=== PATIENT | female | born 2005 | race Caucasian/White ===

== ENCOUNTER 2024-06-08 12:54 | Outpatient (OUT) | payer OTHER, SELFPAY ==
--- NOTE | 2024-06-08 13:03 | XR_ITS ---
The [address] [address] Patient Name: JUSTIN OLVERA MRN: [id number] date: 2005 Sex: F Assigned Patient Location: [facility] Current Patient Location: [facility] Accession/Order Number: [id number] Exam Date: 06/08/2024 13:08 Report Date: 06/08/2024 14:46 At the request of: J CARLOS GUTIERREZ Procedure: XR knee LT 4V EXAM: XR knee LT 4V HISTORY: Knee pain; indication states medial knee pain after overextending knee, coming down stairs 3 days ago; technologist notes state unable to straighten leg and unable to weight-bear. COMPARISON: None. TECHNIQUE: AP, 2 oblique and lateral views of the left knee performed. FINDINGS: On the externally rotated image, there is a small thin ossific density within the soft tissues medial to the medial femoral condyle. Correlate with clinical findings to exclude a small avulsion fracture at the femoral attachment of the MCL. There is no other fracture. The joint spaces are maintained. There is no joint effusion at the knee. XR/XR knee LT 4V IMPRESSION: On the externally rotated image, there is a small thin ossific density within the soft tissues medial to the medial femoral condyle. Correlate with clinical findings to exclude a small avulsion fracture at the femoral attachment of the MCL. The left knee series is otherwise unremarkable. Electronically authenticated by: INDIO LOPES Date: 06/08/2024 14:46
== END 2024-06-08 12:55 | disposition home or self-care (01) ==
LOC: RAD 12:55
PROVIDERS: PCP Nurse Practitioner Primary Care; Visit Provider Nurse Practitioner Primary Care
DX: M25.562 Pain in left knee (principal)
CPT/HCPCS: 73564

== ENCOUNTER 2024-06-09 12:02 | Emergency (ER) | payer OTHER, SELFPAY ==
[2024-06-09 12:05] VITALS: BP 127/76; PULSE 87; TEMP 36.6; O2SAT 98; BMI 21.3
--- OUTSIDE RECORDS SUMMARY | 2024-06-09 12:12 | XMS_ITS | CCD ---
Author Organization [facility] Team Providers Care Handicapped Teacher Name Role Phone No scrap picker, Md Primary Care Provider Raegan vailable NO PRIMARY CARE, Primary Care Unavailable ABIMBOLA LARA Attending Unavailable OTHER, EMERGENCY Referring Unavailable CHAPIN GALVAN Attending Unavailable NO PRIMARY CAREMD Primary Care Unavailable SILAS MOREL Referring Unavailable CHAPIN GALVAN Attending Unavailable CHAPIN GALVAN Referring Unavailable NO PRIMARY CAREMD Primary Care Unavailable NO PRIMARY CAREMD Primary Care Unavailable TERENCE GALVAN Attending Unavailable TERENCE GALVAN Attending Unavailable ADAM MILLER Primary Care Unavailable NO PRIMARY CAREMD Primary Care Unavailable MOOKIE RICO Attending Unavailable ZAC PEREZ Admitting Unavailable ZAC PEREZ Attending Unavailable MAGALI PRIMARY MD ERIK Primary Care Unavailable APRIL KELLEY Attending Unavailable ADAM MILLER Primary Care Unavailable EMERGENCY, [facility] Referring Unavailable Medications Current Medications Medication Drug Class(es) Dates Sig (Normalized) Sig (Original) desmopressin acetate 0.2 mg oral tablet (2 sources) Vasopressin Analog, Factor VIII Activator take 2 tablets by mouth at bedtime desmopressin (DDAVP) 0.2 MG tablet Take 0.4 mg by mouth At bedtime 0 Active polyethylene glycol 3350 66673 mg powder for oral solution (2 sources) Osmotic Laxative Start: 10-21-2022 End: 01-19-2023 take 17 g by mouth once daily polyethylene glycol (MIRALAX;GLYCOLAX) 17 GM/SCOOP powder Take 17 g by mouth daily for 90 days 510 g 2 10/21/2022 01/19/2023 Active End: 10-21-2022 take 17 g by mouth once daily polyethylene glycol (MIRALAX;GLYCOLAX) 17 GM/SCOOP powder Take 17 g by mouth daily 0 10/21/2022 Discontinued (Reorder) sennosides, assisted 8.6 mg oral tablet (1 source) Start: 10-21-2022 End: 01-19-2023 take 1 tablet by mouth once daily at bedtime senna (SENOKOT) 8.6 MG tablet Take 1 Tablet (8.6 mg) by mouth nightly at bedtime for 90 days 30 Tablet 2 10/21/2022 01/19/2023 Active Completed/Discontinued Medications Medication Drug Class(es) Dates Sig (Normalized) Sig (Original) acetaminophen 325 mg oral tablet (1 source) Start: 10-21-2022 End: 10-21-2022 acetaminophen (TYLENOL) 325 MG tablet 650 mg bisacodyl 5 mg delayed release oral tablet (1 source) Stimulant Laxative Start: 08-02-2022 End: 08-02-2022 bisacodyl (DULCOLAX) EC tablet 10 mg clindamycin 0.01 mg/mg topical gel (1 source) Lincosamide Antibacterial End: 10-19-2022 clindamycin (CLINDAGEL) 1 % gel clindamycin 1 % topical gel 0 10/19/2022 Discontinued (* Remove (Not on AVS)) fluconazole 150 mg oral tablet (1 source) Azole Antifungal End: 10-19-2022 fluconazole (DIFLUCAN) 150 MG tablet fluconazole 150 mg tablet 0 10/19/2022 Discontinued (* Remove (Not on AVS)) 1000 ml glucose 50 mg/ml / potassium chloride 0.02 meq/ml / sodium chloride 9 mg/ml injection (1 source) Start: 10-19-2022 End: 10-21-2022 Dextrose 5 % NaCl 0.9% KCl 20 mEq/L IV melatonin 3 mg oral tablet (1 source) Start: 10-19-2022 End: 10-21-2022 melatonin tablet 9 mg midazolam 1 mg/ml injectable solution (1 source) Benzodiazepine Start: 08-02-2022 End: 08-02-2022 midazolam (VERSED) IV 1 mg ondansetron 4 mg disintegrating oral tablet (1 source) Serotonin-3 Receptor Antagonist Start: 10-19-2022 End: 10-21-2022 ondansetron (ZOFRAN-ODT) disintegrating tablet 4 mg Oxymetazoline / Tetracaine (2 sources) [place] Local Anesthetic Start: 10-19-2022 End: 10-19-2022 Oxymetazoline 0.025% Tetracaine 0.25% 1:1 nasal spray 1 [place] Start: 10-19-2022 End: 10-19-2022 Oxymetazoline 0.025% Tetraca ine 0.25% 1:1 nasal spray 1 [place] phenol 14 mg/ml mouthwash (1 source) Start: 10-19-2022 End: 10-21-2022 phenol (CHLORASEPTIC) 1.4 % oral spray 1 [place] polyethylene glycol 3350 [id number] mg / potassium chloride 2970 mg / sodium bicarbonate 6740 mg / sodium chloride 5860 mg / sodium sulfate 87404 mg powder for oral solution (1 source) Osmotic Laxative Start: 10-19-2022 End: 10-21-2022 polyethylene glycol (COLYTE) oral solution 5 ml sodium chloride 9 mg/ml injection (5 sources) Start: 10-19-2022 End: 10-21-2022 NaCl 0.9 % 10 mL Start: 10-19-2022 End: 10-21-2022 NaCl 0.9 % IV Flush bag 30 m L Start: 10-19-2022 End: 10-21-2022 NaCl 0.9% PosiFlush 2 mL sodium phosphate, dibasic 35 .5 mg/ml / sodium phosphate, monobasic 96.4 mg/ml enema (3 sources) Start: 10-19-2022 End: 10-20-2022 phosphate (FLEET) 7-19 GM/11 8ML enema 118 mL Start: 08-02-2022 End: 08-02-2022 phosphate (FLEET) 7-19 GM/11 8ML enema 118 mL surgical lubricant (SURGILUB E) jelly (2 sources) Start: 10-19-2022 End: 10-19-2022 surgical lubricant (SURGILUB E) jelly Start: 10-19-2022 End: 10-19-2022 surgical lubricant (SURGILUB E) jelly water 1000 mg/ml injectable solution (1 source) Start: 10-19-2022 End: 10-21-2022 sterile water injection 10 m L Problems Active Problems Problem Classification Problem Date Documented Da te Episodic/Chronic Anxiety disorders (1 source) Anxiety; Translations: [Anxiety disorder, unspecified] Onset: 11-19-2021 10-19-2022 Chronic Attention-deficit, conduct, and disruptive behavior disorders (3 sources) Disruptive behavior disorder; Translations: [Conduct disorder, unspecified] Onset: 06-08-2019 06-08-2019 Chronic Attention-deficit, conduct, and disruptive behavior disorders (1 source) Problem behavior; Translations: [Other symptoms and signs involving appearance and behavior] Episodic Attention-deficit, conduct, and disruptive behavior disorders (1 source) Aggressive behavior; Translations: [Other symptoms and signs involving appearance and behavior] Episodic Intestinal obstruction without hernia (3 sources) Fecal impaction; Translations: [Fecal impaction] Onset: 10-19-2022 Resolved: 10-21-2022 10-21-2022 Episodic Mood disorders (4 sources) Depressive disorder; Translations: [Depressive disorder] Onset: 08-24-2019 04-26-2020 Chronic Other gastrointestinal disorders (3 sources) Chronic constipation; Translations: [Other constipation] Onset: 10-19-2022 10-21-2022 Episodic Past or Other Problems Problem Classification Problem Date Documented Da te Episodic/Chronic Biliary tract disease (1 source) Polyp of gallbladder; Translations: [Cholesterolosis of gallbladder] Onset: 11-19-2021 10-19-2022 Episodic Fluid and electrolyte disorders (3 sources) Hypokalemia; Translations: [Hypokalemia] Onset: 11-22-2018 Resolved: 11-24-2018 11-24-2018 Episodic Other gastrointestinal disorders (5 sources) Constipation; Translations: [Constipation, unspecified] Onset: 08-02-2022 Resolved: 09-19-2022 Episodic Other nutritional; endocrine; and metabolic disorders (3 sources) Weight loss; Translations: [Abnormal weight loss] Onset: 11-22-2018 Resolved: 11-24-2018 11-24-2018 Episodic Poisoning by nonmedicinal substances (3 sources) Ingestion of foreign material; Translations: [Toxic effect of unspecified substance, accidental (unintentional), initial encounter] Onset: 04-25-2020 04-25-2020 Episodic Residual codes; unclassified (1 source) Body mass index 20-24 - normal; Translations: [Body mass index (BMI) of 20 to 24] Onset: 11-19-2021 10-19-2022 Episodic Suicide and intentional self-inflicted injury (3 sources) Suicide attempt ; Translations: [Poisoning by unspecified drugs, medicaments and biological substances, intentional self-harm, initial encounter] Onset: 04-25-2020 04-25-2020 Episodic Results Test Name Value Interpretation Reference Range Facility ABDOMEN 1 VIEWon 10-21-2022 ABDOMEN 1 VIEW ABDOMEN 1 VIEW CLINICAL HISTORY: clean out post film TECHNIQUE: Supine frontal view of the abdomen was performed. IMAGES OBTAINED: 2 COMPARISON: none FINDINGS: BOWEL GAS PATTERN: Normal nonobstructive bowel gas pattern. STOOL: No significant colonic stool burden CALCIFICATIONS: No abnormal calcifications. LUNG BASES: Visualized lung bases are aerated. BONES: No bony abnormalities noted. IMPRESSION: No abnormalities are identified. This report has been created using voice recognition software Signed by: Dr. CHARIS CASANOVA at 10/21/2022 17:16 Normal [facility] Basic Metabolic Panelon CO2 [Moles/Vol] 19.4 mmol/L Low 22.0-29.0 [facility] Comment on above: Order Comment: Relea se to patient->Automatic [id number]&Blood Performed By: #### E GFR #### [place] [address] Creatinine [Mass/Vol] 0.60 mg/dL Normal 0.50-1.00 [facility] Comment on above: Order Comment: Relea se to patient->Automatic [id number]&Blood Performed By: #### E GFR #### [place] [address] Glucose [Mass/Vol] 95 mg/dL Normal 70-99 [facility] Comment on above: Order Comment: Relea se to patient->Automatic [id number]&Blood Result Comment: Gregory swain for Diagnosis of Diabetes: Fasting Specimen (no caloric intake for at least 8 hours): <100 mg/dL Normal 100-125 mg/dL Increased risk for Diabetes >125 mg/dL Diagnostic for Diabetes Random Glucose (any time of day without regard to last meal): > or = 200 mg/dL plus Classic Symptoms of Diabetes Performed By: #### E GFR #### [address] [address] Urea nitrogen [Mass/Vol] 4 mg/dL Normal 4-19 [facility] Comment on above: Order Comment: Relea se to patient->Automatic [id number]&Blood Performed By: #### E GFR #### [address] [address] Chloride [Moles/Vol] 104 mmol/L Normal 96-108 [facility] [place] Comment on above: Order Comment: Relea se to patient->Automatic [id number]&Blood Performed By: #### E GFR #### [address] [address] Potassium [Moles/Vol] 4.6 mmol/L Normal 3.3-5.1 [facility] Comment on above: Order Comment: Relea se to patient->Automatic [id number]&Blood Performed By: #### E GFR #### [address] [address] Sodium [Moles/Vol] 136 mmol/L Normal 133-145 [facility] Comment on above: Order Comment: Relea se to patient->Automatic [id number]&Blood Performed By: #### E GFR #### [address] [address] Calcium [Mass/Vol] 9.2 mg/dL Normal 7.6-11.0 [facility] Comment on above: Order Comment: Relea se to patient->Automatic [id number]&Blood Performed By: #### E GFR #### [address] [address] Chloride [Moles/Vol] 104 mmol/L 96 - 10 8 mmol/L [facility] CO2 [Moles/Vol] 19.4 mmol/L Low 22.0 - 29.0 mmol/L [facility] Creatinine [Mass/Vol] 0.60 mg/dL 0.50 - 1.00 mg/dL [facility] Glucose [Mass/Vol] 95 mg/dL 70 - 99 mg/dL [facility] Comment on above: Criteria for Diagnos is of Diabetes: Fasting Specimen (no caloric intake for at least 8 hours): <100 mg/dL Normal 100-125 mg/dL Increased risk for Diabetes >125 mg/dL Diagnostic for Diabetes Random Glucose (any time of day without regard to last meal): > or = 200 mg/dL plus Classic Symptoms of Diabetes Interpretation and review of laboratory results Abnormal [facility] Potassium [Moles/Vol] 4.6 mmol/L 3.3 - 5.1 mmol/L [facility] Sodium [Moles/Vol] 136 mmol/L 133 - 145 mmol/L [facility] Urea nitrogen [Mass/Vol] 4 mg/dL 4 - 19 mg/dL [facility] No Panel Informationon 10-21 Release to patient->Automatic [facility] XR Abdomen Viewson 3 IMPRESSION: No abnormalities are identified. This report has been created using voice recognition software [facility] ABDOMEN 1 VIEW CLINICAL HISTORY: clean out post film TECHNIQUE: Supine frontal view of the abdomen was performed. IMAGES OBTAINED: 2 COMPARISON: none FINDINGS: BOWEL GAS PATTERN: Normal nonobstructive bowel gas pattern. STOOL: No significant colonic stool burden CALCIFICATIONS: No abnormal calcifications. LUNG BASES: Visualized lung bases are aerated. BONES: No bony abnormalities noted. [facility] Charis Casanova MD - 10/21/2022 ABDOMEN 1 VIEW CLINICAL HISTORY: clean out post film TECHNIQUE: Supine frontal view of the abdomen was performed. IMAGES OBTAINED: 2 COMPARISON: none FINDINGS: BOWEL GAS PATTERN: Normal nonobstructive bowel gas pattern. STOOL: No significant colonic stool burden CALCIFICATIONS: No abnormal calcifications. LUNG BASES: Visualized lung bases are aerated. BONES: No bony abnormalities noted. IMPRESSION: No abnormalities are identified. This report has been created using voice recognition software [facility] Radiology Study observation (narrative) [facility] XR Abdomen ViewsOrdered By: Charis Casanova on 10-21-2022 [facility] Work Phone: eGFRon 10-21-2022 eGFR see below Normal [facility] Comment on above: Order Comment: Relea se to patient->Automatic [id number]&Blood Result Comment: Refe rence range: > 3 months: >90 ml/min/1.73m^2 Ref. Range change effective 11/07/2017 Unable to calculate EGFR; height not available. - To manually calculate eGFR use Bedside Mckinley equation. - (0.41 X height in centimeters)/serum creatinine mg/dL Performed By: #### E GFR #### [address] [address] eGFR see below [facility] Comment on above: Reference range: > 3 months: >90 ml/min/1.73m^2 Ref. Range change effective 11/07/2017 Unable to calculate EGFR; height not available. - To manually calculate eGFR use Bedside Mckinley equation. - (0.41 X height in centimeters)/serum creatinine mg/dL Basic Metabolic Panelon Calcium [Mass/Vol] 9.0 mg/dL Normal 7.6-11.0 [facility] Comment on above: Order Comment: Relea se to patient->Automatic [id number]&Blood Performed By: #### E GFR #### [address] [address] CO2 [Moles/Vol] 19.7 mmol/L Low 22.0-29.0 [facility] Comment on above: Order Comment: Relea se to patient->Automatic [id number]&Blood Performed By: #### E GFR #### [address] [address] Creatinine [Mass/Vol] 0.61 mg/dL Normal 0.50-1.00 [facility] Comment on above: Order Comment: Relea se to patient->Automatic [id number]&Blood Performed By: #### E GFR #### [address] [address] Glucose [Mass/Vol] 98 mg/dL Normal 70-99 [facility] Comment on above: Order Comment: Relea se to patient->Automatic [id number]&Blood Result Comment: Gregory swain for Diagnosis of Diabetes: Fasting Specimen (no caloric intake for at least 8 hours): <100 mg/dL Normal 100-125 mg/dL Increased risk for Diabetes >125 mg/dL Diagnostic for Diabetes Random Glucose (any time of day without regard to last meal): > or = 200 mg/dL plus Classic Symptoms of Diabetes Performed By: #### E GFR #### [address] [address] Urea nitrogen [Mass/Vol] 5 mg/dL Normal 4-19 [facility] Comment on above: Order Comment: Relea se to patient->Automatic [id number]&Blood Performed By: #### E GFR #### [address] [address] Chloride [Moles/Vol] 106 mmol/L Normal 96-108 [facility] [place] Comment on above: Order Comment: Relea se to patient->Automatic [id number]&Blood Performed By: #### E GFR #### [address] [address] Potassium [Moles/Vol] 4.9 mmol/L Normal 3.3-5.1 [facility] Comment on above: Order Comment: Relea se to patient->Automatic [id number]&Blood Result Comment: Hemo lysis detected. Results may be falsely elevated. Interpret results with caution. Performed By: #### E GFR #### [address] [address] Sodium [Moles/Vol] 138 mmol/L Normal 133-145 [facility] Comment on above: Order Comment: Relea se to patient->Automatic [id number]&Blood Performed By: #### E GFR #### [address] [address] Calcium [Mass/Vol] 9.0 mg/dL 7.6 - 11. 0 mg/dL [facility] Chloride [Moles/Vol] 106 mmol/L 96 - 10 8 mmol/L [facility] CO2 [Moles/Vol] 19.7 mmol/L Low 22.0 - 29.0 mmol/L [facility] Creatinine [Mass/Vol] 0.61 mg/dL 0.50 - 1.00 mg/dL [facility] Glucose [Mass/Vol] 98 mg/dL 70 - 99 mg/dL [facility] Comment on above: Criteria for Diagnos is of Diabetes: Fasting Specimen (no caloric intake for at least 8 hours): <100 mg/dL Normal 100-125 mg/dL Increased risk for Diabetes >125 mg/dL Diagnostic for Diabetes Random Glucose (any time of day without regard to last meal): > or = 200 mg/dL plus Classic Symptoms of Diabetes Interpretation and review of laboratory results Abnormal [facility] Potassium [Moles/Vol] 4.9 mmol/L 3.3 - 5.1 mmol/L [facility] Comment on above: Hemolysis detected. Results may be falsely elevated. Interpret results with caution. Sodium [Moles/Vol] 138 mmol/L 133 - 145 mmol/L [facility] Urea nitrogen [Mass/Vol] 5 mg/dL 4 - 19 mg/dL [facility] No Panel Informationon 10-20 Release to patient->Automatic [facility] eGFRon 10-20-2022 eGFR see below Normal [facility] Comment on above: Order Comment: Relea se to patient->Automatic [id number]&Blood Result Comment: Refe rence range: > 3 months: >90 ml/min/1.73m^2 Ref. Range change effective 11/07/2017 Unable to calculate EGFR; height not available. - To manually calculate eGFR use Bedside Mckinley equation. - (0.41 X height in centimeters)/serum creatinine mg/dL Performed By: #### E GFR #### [place] [address] eGFR see below [facility] Comment on above: Reference range: > 3 months: >90 ml/min/1.73m^2 Ref. Range change effective 11/07/2017 Unable to calculate EGFR; height not available. - To manually calculate eGFR use Bedside Mckinley equation. - (0.41 X height in centimeters)/serum creatinine mg/dL Basic Metabolic Panelon Calcium [Mass/Vol] 10.2 mg/dL Normal 7.6-11.0 [facility] Comment on above: Order Comment: Relea se to patient->Automatic [id number]&Blood Performed By: #### E GFR #### [place] [address] CO2 [Moles/Vol] 25.4 mmol/L Normal 22.0-29.0 [facility] Comment on above: Order Comment: Relea se to patient->Automatic [id number]&Blood Performed By: #### E GFR #### [place] [address] Creatinine [Mass/Vol] 0.71 mg/dL Normal 0.50-1.00 [facility] Comment on above: Order Comment: Relea se to patient->Automatic [id number]&Blood Performed By: #### E GFR #### [place] [address] Glucose [Mass/Vol] 89 mg/dL Normal 70-99 [facility] Comment on above: Order Comment: Relea se to patient->Automatic [id number]&Blood Result Comment: Crit brynn for Diagnosis of Diabetes: Fasting Specimen (no caloric intake for at least 8 hours): <100 mg/dL Normal 100-125 mg/dL Increased risk for Diabetes >125 mg/dL Diagnostic for Diabetes Random Glucose (any time of day without regard to last meal): > or = 200 mg/dL plus Classic Symptoms of Diabetes Performed By: #### E GFR #### [place] [address] Urea nitrogen [Mass/Vol] 8 mg/dL Normal 4-19 [facility] Comment on above: Order Comment: Relea se to patient->Automatic 79845&Blood Performed By: #### E GFR #### [address] [address] Chloride [Moles/Vol] 100 mmol/L Normal 96-108 [facility] [place] Comment on above: Order Comment: Relea se to patient->Automatic [id number]&Blood Performed By: #### E GFR #### [address] [address] Potassium [Moles/Vol] 3.6 mmol/L Normal 3.3-5.1 [facility] Comment on above: Hemolysis detected. Results may be falsely elevated. Interpret results with caution. Order Comment: Relea se to patient->Automatic [id number]&Blood Result Comment: Hemo lysis detected. Results may be falsely elevated. Interpret results with caution. Performed By: #### E GFR #### [address] [address] Sodium [Moles/Vol] 139 mmol/L Normal 133-145 [facility] Comment on above: Order Comment: Relea se to patient->Automatic [id number]&Blood Performed By: #### E GFR #### [address] [address] Calcium [Mass/Vol] 10.2 mg/dL 7.6 - 11. 0 mg/dL [facility] CO2 [Moles/Vol] 25.4 mmol/L 22.0 - 29.0 mmol/L [facility] Creatinine [Mass/Vol] 0.71 mg/dL 0.50 - 1.00 mg/dL [facility] Glucose [Mass/Vol] 89 mg/dL 70 - 99 mg/dL [facility] Comment on above: Criteria for Diagnos is of Diabetes: Fasting Specimen (no caloric intake for at least 8 hours): <100 mg/dL Normal 100-125 mg/dL Increased risk for Diabetes >125 mg/dL Diagnostic for Diabetes Random Glucose (any time of day without regard to last meal): > or = 200 mg/dL plus Classic Symptoms of Diabetes Urea nitrogen [Mass/Vol] 8 mg/dL 4 - 19 mg/dL [facility] No Panel Informationon 10-19 Release to patient->Automatic [facility] eGFRon 10-19-2022 eGFR see below Normal [facility] Comment on above: Order Comment: Relea se to patient->Automatic [id number]&Blood Result Comment: Refe rence range: > 3 months: >90 ml/min/1.73m^2 Ref. Range change effective 11/07/2017 Unable to calculate EGFR; height not available. - To manually calculate eGFR use Bedside Mckinley equation. - (0.41 X height in centimeters)/serum creatinine mg/dL Performed By: #### E GFR #### [place] [address] eGFR see below [facility] Comment on above: Reference range: > 3 months: >90 ml/min/1.73m^2 Ref. Range change effective 11/07/2017 Unable to calculate EGFR; height not available. - To manually calculate eGFR use Bedside Mckinley equation. - (0.41 X height in centimeters)/serum creatinine mg/dL ABDOMEN 1 VIEWon 10-14-2022 ABDOMEN 1 VIEW CLINICAL HISTORY: 16 year old with chronic constipation; evaluate stool burden COMPARISON: 08/02/2022 PROCEDURE COMMENTS: Single view of the abdomen. FINDINGS: There is a large amount of stool in the rectum with the rectum distended up to 10 cm. A moderate to large amount of stools throughout the remaining colon most prominent in the ascending and transverse colon. There are no air-filled dilated loops of small bowel. No calcification is identified. The lung bases are clear.Mild rightward curvature of the lumbar spine in this position. IMPRESSION: Large stool burden with findings concerning for rectal impaction. This report has been created using voice recognition software Signed by: Dr. Ariadna Huang at 10/14/2022 11:34 Normal [facility] Progress Noteon 10-14-2022 [employer] Authentication Interface Message Text Justin Olvera is here for new office visit for: Constipation History of Present Illness HPI Justin is a 16 year old female with depression and history of suicide attempt who is being seen here today for constipation. Justin has struggled with constipation for my whole life . She was previously on miralax but she says that it caused a lot of pain so she stopped taking it about a month ago. She has a bowel movement 1-2 times per week. She says that the stools are soft and formed. But she is constipated about half of the time. She will have periods of constipation where she will have a lot of straining and has to use every muscle in my body . She says that she will sometimes see blood in her stools when they are harder and larger but she tries not to look because she gets scared when she sees the blood. Per grandma, she gets impacted frequently and has done one home clean out in the past. She isn't sure what she took at that time but it didn't help. She has abdominal pain frequently - almost daily. The pain is constant but there are days when the pain isn't as severe. She also gets nauseous frequently and she will have occasional vomiting. These symptoms have been going on for a long period of time. Variable appetite - hasn't eaten yet today. She was seen in the ED in Jul 2022. She had a very large stool burden and received an enema. She passed liquid stool and was discharged with miralax and bisacodyl. Past Medical History Past Medical History: Diagnosis Date ADHD (attention deficit hyperactivity disorder) Anxiety Bed wetting Depression Neuroleptic overdose 08/22/2019 Suicide attempt by other psychotropic drug overdose 08/23/2019 Past Surgical History Past Surgical History: Procedure Laterality Date TONSILLECTOMY TYMPANOSTOMY TUBE PLACEMENT placed spring Allergies No Known Allergies Medications Outpatient Encounter Medications as of 10/14/2022 Medication Sig Dispense Refill desmopressin (DDAVP) 0.2 MG tablet Take 0.4 mg by mouth At bedtime (Patient not taking: Reported on 06/02/2022) No facility-administered encounter medications on file as of 10/14/2022. Family Medical History Family History Problem Relation Age of Onset Substance Use Mother Suicide Attempts Mother Anxiety Disorder Mother ADHD Mother Suicide Attempts Father Bipolar Disorder Father Anxiety Disorder Father Substance Use Father Bipolar Disorder Sister Suicide Attempts Sister Depression Maternal Uncle Eating Disorder Paternal Aunt Depression Paternal Aunt Depression Maternal Grandmother Mental Illness Paternal Grandfather Social History Social History Socioeconomic History Marital status: Single Spouse name: None Number of children: None Years of education: None Highest education level: None Tobacco Use Smoking status: Every Day Packs/day: 0.00 Types: Vaping, Cigarettes Smokeless tobacco: Current Vaping Use Vaping status: Former Substances: Nicotine Substance and Sexual Activity Alcohol use: Yes Comment: more than 1 [id number] access was drinking daily 2-3pint of Fireball close to almost 1 year Drug use: Yes Types: Marijuana, LSD, Benzodiazepines, Methylphenidate Comment: regular use of marijuana-4 days ago. 1/2 blunt a day, quit for drug test 1 week ago . Zanax Diet Social History Water source for child? [place] Review of Systems Review of Systems Constitutional: Negative. HENT: Negative. Eyes: Negative. Respiratory: Negative. Cardiovascular: Negative. Endocrine: negative Gastrointestinal: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 [degF] Mookie Rico DO Work Phone: [facility] 08-02-2022 20:33-0500 Respiratory rate 18 /min Crystal Trisha DO Work Phone: [facility] 08-02-2022 13:29-0500 Body weight 51 kg Crystal Trisha DO Work Phone: [facility] 08-02-2022 13:29-0500 Diastolic blood pressure 80 mm[Hg] Crystal Trisha DO Work Phone: [facility] 08-02-2022 13:29-0500 Heart rate 110 /min Crystal Trisha DO Work Phone: [facility] 08-02-2022 13:29-0500 SaO2% (BldA) [Mass fraction] 99 % Crystal Trisha DO Work Phone: [facility] 08-02-2022 13:29-0500 Systolic blood pressure 125 mm[Hg] Crystal Trisha DO Work Phone: [facility] Encounters Encounter Date Encounter Type Care Provider Facility Start: 10-19-2022 End: 10-21-2022 Evaluation and management of inpatient ZAC THOMPSONRER [facility] Start: 10-19-2022 End: 10-21-2022 Evaluation and management of inpatient Zac Perez DO Work Phone: [facility] Comment on above: Fecal impaction (Amanda wick Dx); Chronic constipation Start: 10-14-2022 End: 10-15-2022 ambulatory CHAPIN GALVAN [facility] Start: 10-14-2022 End: 10-14-2022 ambulatory [facility] Esteban GALVAN [facility] Start: 08-04-2022 ambulatory [facility] Start: 08-04-2022 End: 08-04-2022 Emergency department patient visit MD [facility] Start: 08-04-2022 End: 08-04-2022 Emergency department patient visit Terence Galvan MD Work Phone: [facility] Comment on above: Aggressive behavior (Primary Dx); Behavior concern Start: 08-02-2022 End: 08-02-2022 Emergency department patient visit MD [facility] Start: 08-02-2022 End: 08-02-2022 Emergency department patient visit Mookie Rico DO Work Phone: [facility] Comment on above: Constipation (Primar y Dx) Start: 06-02-2022 End: 06-02-2022 Emergency department patient visit APRIL KELLEY [facility] Start: 06-02-2022 End: 06-02-2022 Emergency department patient visit TERENCE GALVAN [facility] Procedures Date Procedure Procedure Detail Performing Clinician Start: 10-21-2022 Radiologic exam abdomen 1 view Sasha Kehinde ASSET4columba DO Work Phone (unformatted): [phone] Start: 10-21-2022 Basic metabolic pane l calcium total Sasha Plummer DO Work Phone (unformatted): [phone] Start: 10-21-2022 GFR/1.73 sq M.predicted among non-blacks MDRD (S/P/Bld) [Vol rate/Area] Sasha Busby Jamesoncolumab DO Work Phone (unformatted): [phone] Start: 10-20-2022 Basic metabolic pane l calcium total Rachel Stanford MD Work Phone (unformatted): [phone] Start: 10-20-2022 GFR/1.73 sq M.predicted among non-blacks MDRD (S/P/Bld) [Vol rate/Area] Rachel Stanford MD Work Phone (unformatted): [phone] Start: 10-19-2022 Basic metabolic pane l calcium total Sasha Busby [employer] DO Work Phone (unformatted): [phone] Start: 10-19-2022 GFR/1.73 sq M.predicted among non-blacks MDRD (S/P/Bld) [Vol rate/Area] Sasha Thompsonckeltremaine DO Work Phone (unformatted): [phone] Start: 08-02-2022 Basic metabolic 2000 panel - Serum or Plasma Mookie Rico DO Work Phone: Start: 08-02-2022 GFR/1.73 sq M.predicted among non-blacks MDRD (S/P/Bld) [Vol rate/Area] Mookie Rico DO Work Phone: Start: 08-02-2022 Radiologic exam abdomen 1 view Alan Owen MD Work Phone: Plan of Treatment Date Care Activity Detail Author Start: 02-24-2028 Tetanus Diphtheria and Pertussis Vaccines (6 - Td or Tdap) Tetanus Diphtheria and Pertussis Vaccines (6 - Td or Tdap) [facility] Start: 11-08-2022 End: 11-08-2022 Patient encounter procedure 11/08/2022 9:00 AM EDT Office Visit [facility] - [place] [address] [facility] [address] [place] [address] Chapin Galvan DO [address] [place] [address] Gastroenterology [facility] Start: 10-14-2022 End: 10-14-2022 Patient encounter procedure 10/14/2022 Office Visit Gastroenterology Chapin Galvan DO [address] [place] [address] Gastroenterology [facility] Start: 04-15-2022 FLU (#1) FLU (#1) [facility] Start: 2020 MenACWY (1 - 2-dose series) MenACWY (1 - 2-dose series) [facility] Start: 2020 MenB (1 of 2 - MenB 2-Dose Series Bexsero) MenB (1 of 2 - MenB 2-Dose Series Bexsero) [facility] Start: 12-25-2019 Hearing Screening Hearing Screening [facility] Start: 12-25-2019 Vision Screening Vision Screening [facility] Start: 08-26-2018 HPV (2 - 2-dose series) HPV (2 - 2-dose series) [facility] Start: 12-25-2015 HPV (1 - 2-dose series) HPV (1 - 2-dose series) [facility] Start: 12-25-2011 Tetanus Diphtheria and Pertussis Vaccines (1 - Tdap) Tetanus Diphtheria and Pertussis Vaccines (1 - Tdap) [facility] Start: 2005 Hepatitis A (1 of 2 - 2-dose series) Hepatitis A (1 of 2 - 2-dose series) [facility] Start: 2005 MMR (1 of 2 - Standard series) MMR (1 of 2 - Standard series) [facility] Start: 2005 Varicella (1 of 2 - 2-dose childhood series) Varicella (1 of 2 - 2-dose childhood series) [facility] Start: 06-26-2005 COVID-19 (#1) COVID-19 (#1) [facility] Start: 02-23-2005 Polio (1 of 3 - 4-dose series) Polio (1 of 3 - 4-dose series) [facility] Start: 2004 Hepatitis B (1 of 3 - 3-dose series) Hepatitis B (1 of 3 - 3-dose series) [facility] Immunizations Immunization Date Immunization Notes Care Provider Ayesha christianson 11-16-2021 meningococcal polysaccharide (groups A, C, Y and W-135) diphtheria toxoid conjugate vaccine (MCV4P) Zac Perez DO Work Phone: [facility] 02-23-2018 Human Papillomavirus 9-valent vaccine Zac Perez DO Work Phone: [facility] 02-23-2018 meningococcal polysaccharide (groups A, C, Y and W-135) diphtheria toxoid conjugate vaccine (MCV4P) Zac Perez DO Work Phone: [facility] 02-23-2018 tetanus toxoid, redu demetrio diphtheria toxoid, and acellular pertussis vaccine, adsorbed Zac Ana DO Work Phone: [facility] 03-23-2010 diphtheria, tetanus toxoids and acellular pertussis vaccine, unspecified formulation Zac Ana DO Work Phone: [facility] 03-23-2010 measles, mumps and rubella virus vaccine Zac Ana DO Work Phone: [facility] 03-23-2010 poliovirus vaccine, inactivated Zac Ana DO Work Phone: [facility] 03-23-2010 varicella virus vaccine Core y Ana DO Work Phone: [facility] 09-20-2006 diphtheria, tetanus toxoids and acellular pertussis vaccine, unspecified formulation Zac Ana DO Work Phone: [facility] 02-07-2006 haemophilus influenz ae type b vaccine, HbOC conjugate Zac Ana DO Work Phone: [facility] 02-07-2006 measles, mumps and rubella virus vaccine Zac Ana DO Work Phone: [facility] 02-07-2006 pneumococcal conjuga te vaccine, 7 valent Zac Ana DO Work Phone: [facility] 02-07-2006 poliovirus vaccine, inactivated Azc Ana DO Work Phone: [facility] 02-07-2006 TD(adult) unspecifie d formulation Zac Ana DO Work Phone: [facility] 02-07-2006 varicella virus vaccine Core y Ana DO Work Phone: [facility] 09-13-2005 diphtheria, tetanus toxoids and acellular pertussis vaccine, unspecified formulation Zac Ana DO Work Phone: [facility] 09-13-2005 haemophilus influenz ae type b conjugate and Hepatitis B vaccine Zac Ana DO Work Phone: [facility] 09-13-2005 pneumococcal conjuga te vaccine, 7 valent Zac Ana DO Work Phone: [facility] 09-13-2005 poliovirus vaccine, inactivated Zac Ana DO Work Phone: [facility] 04-14-2005 DTaP-hepatitis B and poliovirus vaccine Zac Ana DO Work Phone: [facility] 04-14-2005 haemophilus influenz ae type b vaccine, HbOC conjugate Zac Ana DO Work Phone: [facility] 04-14-2005 pneumococcal conjuga te vaccine, 7 valent Zac Ana DO Work Phone: [facility] 2004 diphtheria, tetanus toxoids and acellular pertussis vaccine, unspecified formulation Zac Ana DO Work Phone: [facility] 2004 hepatitis B vaccine, pediatric or pediatric/adolescent dosage Zac Ana DO Work Phone: [facility] Payers Date Payer Category Payer Unknown [id number] 1983 Unknown [id number] 2.. [id number] 1983 Unknown [id number] 2.. [id number] 1983 Unknown [id number] 2.16. [id number] 1983 Unknown [id number] 2.16. [id number] 1983 Unknown [id number] 2.16. [id number] 1983 Unknown [id number] 2.16. [id number] 1983 Unknown [id number] 2.16. [id number] 1983 Unknown [id number] 2.16. [id number] Unknown [id number] Unknown [id number] Social History Date Type Detail Facility Start: 04-25-2020 Tobacco smoking stat [facility] Ex-smoker [facility] History of tobacco use Current smoker [facility] History of tobacco use Cigarette Smoker A [facility] History of tobacco use [facility] Start: 04-25-2020 Tobacco use and exposure Smoke less tobacco non-user [facility] Start: 08-02-2022 End: 10-14-2022 Alcohol intake Current drinker of alcohol (finding) [facility] Start: 06-08-2019 History SDOH Alcohol Frequency 2 [facility] Start: 06-08-2019 History SDOH Alcohol Std Drinks 3 [facility] Start: 08-22-2019 Tobacco Comment sometimes smok ed a juul, over a year ago [facility] Start: 08-22-2019 Alcohol Comment social use wit h friends, over about 3 months ago [facility] Start: 2005 Sex Assigned At Not on file A [facility] Start: 08-04-2022 Tobacco smoking stat RUSTIS Smokes tobacco daily [facility] Work Phone: Start: 08-04-2022 Tobacco use and exposure User of smokeless tobacco [facility] Start: 08-04-2022 Alcohol Comment more than 1 [id number] access was drinking daily 2-3pint of Fireball close to almost 1 year [facility] Start: 07-25-2022 End: 08-04-2022 Exposure to SARS-CoV-2 (event) Not sure [facility] Start: 06-03-2022 End: 10-14-2022 History of Social function [facility] Work Phone: Start: 06-03-2022 End: 10-14-2022 Tobacco use panel [facility] Work Phone: Adolescent depressio n screening assessment 7 [facility] Work Phone: Clinical Notes 06-02-2022 to 10-21-2022 Ancillary Progress Note - Janice Morales - 10/21/2022 3:20 PM ESTAncillary Progress Note - Janice Morales - 10/21/2022 3:20 PM ESTPlan of Care - Lisa Tenoroi RN - 10/21/2022 9:32 AM ESTAttachments Note Date & Type Note Facility 10-21-2022 Note Discharge/Transfer S blessing Name: Justin Olvera MR#: [id number] : 2005 Room #: 6120/01 Age/Sex: 16 y.o. female Admit Date: 10/19/2022 Admitting: Zac Perez DO Discharge Date: 10/21/2022 Discharged from: [facility] Attending: Dr Perez Final Diagnosis: Fecal impaction Significant Findings (Problem List): Active Hospital Problems Diagnosis Chronic constipation Resolved Hospital Problems Diagnosis Date Resolved Fecal impaction 10/21/2022 Reason for Hospitalization: Fecal impaction Discharge Condition: Good Hospital Course (Care, treatment and services provided): Brief Narrative Hospital Course: Justin Olvera is a 16 y.o. female with hx of anxiety, depression, manic bipolar I disorder, and constipation presenting with fecal impaction. Justin was recently seen in GI clinic on 10/14/22 at that time she reported that she has bowel movements 1-2x/weekly which are soft. She states she has always struggled with constipation and will sometimes develop nausea and abdominal cramping after taking Miralax so will not take it. No regular home bowel regimen and unable to complete home clean out therapy. KUB on 10/14/22 revealed large stool burden with concern for rectal impaction with rectal distension 10 cm. Patient was ultimately directly admitted to GI service for NG Colyte clean out. During admission, NG was placed and Colyte ran at goal rate, as well as 2 enemas. Patient maintained on IVF for hydration. Patient had no significant electrolyte derangements. Stools were monitored until clear. Repeat KUB was obtained once cleared and showed no significant stool burdern. Patient was discharged to home with home bowel regimen Senna daily and Miralax 1 capful daily and will follow up with GI as an outpatient. Discharge Day Exam: Refer to daily progress note for physical exam Immunizations Administered for This Admission No immunizations on file. Significant Imaging Results: X-Ray Abdomen 1 View Final Result by Danis Rad Results In (10/21 1716) IMPRESSION: No abnormalities are identified. This report has been created using voice recognition software Pending Test Results and Tests to Obtain as Outpatient: In-Process Results No orders found from 09/22/2022 to 10/22/2022. Preliminary Results No orders found from 09/22/2022 to 10/22/2022. Disposition: She was discharged to home. Discharge Medications: She did have significant changes to their home medications (see below) Medication List START taking these medications Morning Afternoon Evening Bedtime As Needed senna 8.6 MG tablet Take 1 Tablet (8.6 mg) by mouth nightly at bedtime for 90 days Commonly known as: SENOKOT [ ] [ ] [ ] [ ] [ ] CONTINUE taking these medications which HAVE NOT changed at this visit Morning Afternoon Evening Bedtime As Needed polyethylene glycol 17 GM/SCOOP powder Take 17 g by mouth daily for 90 days Commonly known as: MIRALAX;GLYCOLAX [ ] [ ] [ ] [ ] [ ] Where to Get Your Medications These medications were sent to [facility] [address] [facility] [place], [place] - [address] [place] [address] polyethylene glycol 17 GM/SCOOP powder senna 8.6 MG tablet Discharge Instructions: Instructions/Follow Up Future Labs/Procedures Expected by Expires Disease Specific Instructions: As directed Comments: Constipation: Justin was diagnosed with constipation. Home regimen: 1 capful ( 17 g) Miralax daily - mix with 4 - 6 oz of liquid Senna 1 tablet (8.6 mg) by mouth daily Sometimes, medicine is prescribed to help with constipation. Polyethylene glycol (miralax) helps make stool softer. Laxatives helps the stool move through the bowel easier. Please see the medication list of what Justin was prescribed. Medicine will not make the constipation go away immediately - it may take days or weeks to see improvement. Typically, the goal is to have 1 soft stool every day. You can work with Justin's doctor on medication changes if needed. There are other ways to help manage constipation. Hydration - Increasing the amount of fluids she drinks can help keep her stools soft. Exercise - Regular exercise, including walking, is also encouraged. Physical activity can help stimulate her intestines. Diet/Fiber - Foods high in fiber can also help prevent and alleviate constipation. Foods high in fiber include fruit, vegetables, whole-grain breads, low-fat dairy products, beans, and lean meats. Behavioral modification - It is also helpful to set up a regular time each day for your child to have a bowel movement. Allow them to sit on the toilet for at least 10 minutes at the same time each day. This may help train your child's body to have regular bowel movements. Having a stool for her to put her legs up on while on the toilet can sometimes help as well. Justin should be evaluated by a healthcare professional if (more content not included)... [facility] 10-21-2022 Progress note Formatting of t his note is different from the original. NUTRITION MONITORING: Reviewed H&P, progress notes, nursing nutrition screen, problem list, growth, current nutrition support, nutritionally significant labs and medications. Justin Olvera is a 16 y.o. female Patient Active Problem List Diagnosis Disruptive behavior disorder Depressive disorder Suicide attempt by drug ingestion Ingestion of substance Chronic constipation Anxiety Body mass index (BMI) of 20 to 24 Manic bipolar I disorder Polyp of gallbladder Fecal impaction Past Medical History: Diagnosis Date ADHD (attention deficit hyperactivity disorder) Anxiety Bed wetting Depression Neuroleptic overdose 08/22/2019 Suicide attempt by other psychotropic drug overdose 08/23/2019 Current Diet:Patient is on a Clear Liquid diet PO Intake(%): No Known Allergies Body mass index is 22.95 kg/m . at the 69 %ile (Z= 0.49) based on CDC (Girls, 2-20 Years) BMI-for-age data using weight from 10/19/2022 and height from 10/14/2022. 65 %ile (Z= 0.38) based on CDC (Girls, 2-20 Years) [id number] data using vitals from 10/19/2022. Medications:Zofran Lab Results:Reviewed Recent Labs 10/21/22 0628 NA 136 K 4.6 CL 104 CO2 19.4* BUN 4 GLU 95 CALCIUM 9.2 CREATININE 0.60 Nutrition Concerns:Patient presents with constipation. Patient is here for a bowel clean out. Plan:Investigator Welfare/Pathologist to follow-up in three days. Monitor for diet advancement, nutritional intake, tolerance, clinical condition, and weight changes. JANICE MORALES October 21, 2022 [facility] 10-21-2022 Miscellaneous Notes NUTRITION MONITORING: Reviewed H&P, progress notes, nursing nutrition screen, problem list, growth, current nutrition support, nutritionally significant labs and medications. Justin Olvera is a 16 y.o. female Patient Active Problem List Diagnosis Disruptive behavior disorder Depressive disorder Suicide attempt by drug ingestion Ingestion of substance Chronic constipation Anxiety Body mass index (BMI) of 20 to 24 Manic bipolar I disorder Polyp of gallbladder Fecal impaction Past Medical History: Diagnosis Date ADHD (attention deficit hyperactivity disorder) Anxiety Bed wetting Depression Neuroleptic overdose 08/22/2019 Suicide attempt by other psychotropic drug overdose 08/23/2019 Current Diet:Patient is on a Clear Liquid diet PO Intake(%): No Known Allergies Body mass index is 22.95 kg/m . at the 69 %ile (Z= 0.49) based on CDC (Girls, 2-20 Years) BMI-for-age data using weight from 10/19/2022 and height from 10/14/2022. 65 %ile (Z= 0.38) based on CDC (Girls, 2-20 Years) [id number] data using vitals from 10/19/2022. Medications:Zofran Lab Results:Reviewed Recent Labs 10/21/22 0628 NA 136 K 4.6 CL 104 CO2 19.4* BUN 4 GLU 95 CALCIUM 9.2 CREATININE 0.60 Nutrition Concerns:Patient presents with constipation. Patient is here for a bowel clean out. Plan:Investigator Welfare/Pathologist to follow-up in three days. Monitor for diet advancement, nutritional intake, tolerance, clinical condition, and weight changes. JANICE MORALES October 21, 2022 Problem: Constipation, Risk of Goal: Bowel elimination without discomfort Outcome: Ongoing Problem: Fluid Volume Deficit Goal: Balanced intake and output Outcome: Ongoing Problem: Nausea/Vomiting Goal: Absence of nausea Outcome: Ongoing Problem: Pain - Acute Goal: Reduced pain sensation Outcome: Ongoing Problem: Transition Readiness Goal: Knowledge of discharge instructions Outcome: Ongoing Multidisciplinary Team Meeting Assessment/Plan of Care Reviewed Are there Case Management needs identified at this time? No DME/skilled needs at this time. CMs will continue to monitor closely for potential home care (services/equipment) needs. Pt on IV fluids and receiving Golytely via NG tube. Representatives: Case Management: Mallory Chan RN, Melchor Farris RN Nursing: Jass Rocha RN Clinical Coordinator Slat Twister: Da Diaz Multidisciplinary Team Meeting Assessment/Plan of Care Reviewed Are there Case Management needs identified at this time? No DME/skilled needs at this time. CMs will continue to monitor closely for potential home care (services/equipment) needs. Pt on IV fluids and receiving Golytely via NG tube. Representatives: Case Management: Mallory Chan RN, Melchor Farris booth operator Life: Anya Valoric CCLS Nursing: Teresa Hanley RN Clinical Coordinator Slat Twister: Da Montano Problem: Constipation, Risk of Goal: Bowel elimination without discomfort Outcome: Ongoing Problem: Fluid Volume Deficit Goal: Balanced intake and output Outcome: Ongoing Problem: Nausea/Vomiting Goal: Absence of nausea Outcome: Ongoing Problem: Constipation, Risk of Goal: Bowel elimination without discomfort Outcome: Ongoing Problem: Fluid Volume Deficit Goal: Balanced intake and output Outcome: Ongoing Problem: Nausea/Vomiting Goal: Absence of nausea Outcome: Ongoing Problem: Pain - Acute Goal: Reduced pain sensation Outcome: Ongoing Problem: Transition Readiness Goal: Knowledge of discharge instructions Outcome: Ongoing documented in this encounter [facility] 10-21-2022 Plan of care note Problem: Constipation, Risk of Goal: Bowel elimination without discomfort Outcome: Ongoing Problem: Fluid Volume Deficit Goal: Balanced intake and output Outcome: Ongoing Problem: Nausea/Vomiting Goal: Absence of nausea Outcome: Ongoing Problem: Pain - Acute Goal: Reduced pain sensation Outcome: Ongoing Problem: Transition Readiness Goal: Knowledge of discharge instructions Outcome: Ongoing [facility] 10-21-2022 Progress note Formatting of t his note might be different from the original. Multidisciplinary Team Meeting Assessment/Plan of Care Reviewed Are there Case Management needs identified at this time? No DME/skilled needs at this time. [facility] will continue to monitor closely for potential home care (services/equipment) needs. Pt on IV fluids and receiving Golytely via NG tube. Representatives: Case Management: Mallory Chan RN, Melchor Farris RN Nursing: Jass Rocha RN Clinical Coordinator Slat Twister: Da Diaz [facility] 10-21-2022 History of Presen t illness Narrative Resident Daily Progress Note Name: Justin Olvera Date:10/21/2022 Attending:Zac Perez DO Admission Date: 10/19/2022 Hospital Day: 3 SUBJECTIVE: Justin had no acute events overnight and had stable VS. She was having nausea so colytely clean out was decreased to 400 cc/hr and it improved. She continues to stool, most recent stool noted to be large, green-yellow, watery. She denied any abdominal cramping or nausea this morning. OBJECTIVE: Vitals: 10/21/22 0354 BP: 106/76 Pulse: 62 Resp: 16 Temp: 36.9 C (98.4 F) Temp: 36.9 C (98.4 F) Temp Min: 36.8 C (98.2 F) Max: 37.2 C (99 F) Heart Rate: 62 Pulse Min: 62 Max: 92 Resp: 16 Resp Min: 16 Max: 25 BP: 106/76 BP Min: 104/68 Max: 145/71 No data recorded Date 10/20/22 - 10/20/22235810/21/22 0000 - 10/21/222358 Shift 6546-6180 6926-5702 24 Hour Total 5088-9006 24 Hour Total INTAKE P.O. 500 298 798 Colyte Solution PO (mL) 500 500 Liquid (mL) 298 298 I.V.(mL/kg/hr) 1195.29(1.67) 658.92(0.92) 1854.21(1.29) Volume (mL) (Dextrose 5 % NaCl 0.9% KCl 20 mEq/L IV) 1195.29 658.92 1854.21 NG/GT 1500 5500 7000 3000 3000 Colyte Solution NG/GT (mL) 1500 5500 7000 3000 3000 Shift Total(mL/kg) 3195.29(53.52) 6456.92(108.16) 9652.21(161.68) 3000(50.25) 3000(50.25) OUTPUT Stool(mL/kg/hr) 3150(4.4) 1800(2.51) 4950(3.45) 600 600 Stool 3150 1800 4950 600 600 Shift Total(mL/kg) 3150(52.76) 1800(30.15) 4950(82.92) 600(10.05) 600(10.05) NET 45.29 4656.92 4702.21 2400 2400 Weight (kg) 59.7 59.7 59.7 59.7 59.7 59.7 Dietary Orders (From admission, onward) Start Ordered 10/19/22 09 DIET CLEAR LIQUID DIET EFFECTIVE NOW 10/19/22 09 Patient Lines/Drains/Airways Status Active IV Lines Name Placement date Placement time Site Days Peripheral IV 10/21/22 Left Antecubital 10/21/22 0105 -- less than 1 Patient Lines/Drains/Airways Status Active NG/Airways Name Placement date Placement time Site Days Nasal/Oral Tube 10 fr Right nostril 10/19/222115 Right nostril 1 General: Afebrile, In no acute distress, well appearing HEENT: moist mucus membranes, no nasal or ocular discharge, NG present in nares Cardiovascular: RRR, Normal S1 and S2, No murmurs, gallops, or rubs, pulses palpable, capillary refill< 3 seconds Respiratory: Good aeration B/L. No wheezes, rhonchi, or cough. No increased respiratory effort use of accessory muscles, supraclavicular, intercostal, or subcostal retractions. No stridor, grunting or head bobbing. Abdomen: Normal active bowel sounds present, soft, non-distended, non-tender, no guarding, stool palpable in abdomen. MSK: no deformities, no joint swelling Neuro: Alert, gross motor movements intact Skin: Warm and dry, No rashes Scheduled Meds: NaCl 0.9% 2 mL Intravenous Q8H melatonin 9 mg Oral at Bedtime Continuous Infusions: polyethylene glycol 500 mL/hr (10/20/22 214) Dextrose 5 % NaCl 0.9% KCl 20 mEq/L 100 mL/hr at 10/21/22 0312 PRN Meds: NaCl 0.9%, NaCl 0.9%, NaCl, sterile water, NaCl, ondansetron, phenol Data Review: Results for orders placed or performed during the hospital encounter of 10/19/22 (from the past 24 hour(s)) Basic Metabolic Panel Result Value Ref Range Sodium 136 133 - 145 mmol/L Potassium 4.6 3.3 - 5.1 mmol/L Chloride 104 96 - 108 mmol/L Carbon Dioxide 19.4 (L) 22.0 - 29.0 mmol/L BUN 4 4 - 19 mg/dL Glucose 95 70 - 99 mg/dL Creatinine 0.60 0.50 - 1.00 mg/dL Calcium 9.2 7.6 - 11.0 mg/dL eGFR Result Value Ref Range eGFR see below NA Assessment: Principal Problem: Fecal impaction Active Problems: Chronic constipation Justin is a 16 y.o. female with hx of anxiety, depression, manic bipolar I disorder, and constipation presenting with fecal impaction. She is currently in no acute distress and continued to have green yellow stools. She requires continued hospital admission for close monitoring, NG bowel clean out and monitoring for electrolyte derangements. Plan: Problem Based Plan: Principal Problem: Fecal impaction Active Problems: Chronic constipation - place NG - Colyte Start at 100 and increase by 50 to a goal rate of 500 cc/hr - S/p Fleet enema x2 - MIVF - CLD - Zofran 4mg q8h PRN for nausea - Melatonin 9 mg HS - Chloraseptic spray PRN - Strict I&O's - routine vitals - daily BMP - KUB once clears - Child life consult Sasha Plummer DO [facility] Pediatric Resident, PGY-2 10/21/22 9:31 AM I personally performed clarke portions of the history and physical examination of this patient, and discussed their management with the media relations intern/resident. I reviewed the media relations intern/resident's note, and agree with the documented findings and plan of care, except as noted by or italics. I have discussed the differential diagnosis, assessment, and plan of care with the media relations intern/resident and medical decision making was done together. Zac Perez DO [facility] Pediatric Gastroenterology Office [phone] Pager [phone] 10/21/2022 1:41 PM Resident Daily Progress Note Name: Justin Olvera Date:10/20/2022 Attending:Zac Perez DO Admission Date: 10/19/2022 Hospital Day: 2 SUBJECTIVE: Justin had no acute events overnight. She vomited out her NG and it was replaced. She is stooling, most recent stool noted to be large, brown, watery. She endorsed minimal abdominal cramping this morning. OBJECTIVE: Vitals: 10/20/22 0435 BP: 121/66 Pulse: 78 Resp: 20 Temp: 37.1 C (98.8 F) Temp: 37.1 C (98.8 F) Temp Min: 36.6 C (97.9 F) Max: 37.5 C (99.5 F) Heart Rate: 78 Pulse Min: 70 Max: 99 Resp: 20 Resp Min: 16 Max: 30 BP: 121/66 BP Min: 107/57 Max: 127/85 No data recorded Date 10/19/22 0000 - 10/19/22235810/20/22 0000 - 10/20/22 235 Shift 4396-1321 1449-8056 24 Hour Total 2992-0577 6593-6484 24 Hour Total INTAKE P.O. 260 260 Liquid (mL) 260 260 I.V. 758.35(1.06) 758.35(0.53) 665.8 665.8 Volume (mL) (Dextrose 5 % NaCl 0.9% KCl 20 mEq/L IV) 758.35 758.35 665.8 665.8 NG/GT 1000 1000 Colyte Solution NG/GT (mL) 1000 1000 Shift Total(mL/kg) 2017.35(33.81) 2018.35(33.81) 665.8(11.15) 665.8(11.15) OUTPUT Urine Urine Occurrence 1 x 1 x Emesis/NG/GT Emesis Occurrence 1 x 1 x Stool 2600 2600 Stool 2600 2600 Shift Total(mL/kg) 2600(43.55) 2600(43.55) NET 35 2017.35 -1934.2 -1934.2 Weight (kg) 59.7 59.7 59.7 59.7 59.7 Dietary Orders (From admission, onward) Start Ordered 10/19/22 0952 DIET CLEAR LIQUID DIET EFFECTIVE NOW 10/19/22 0955 Patient Lines/Drains/Airways Status Active IV Lines Name Placement date Placement time Site Days Peripheral IV 10/19/22 18 Right Antecubital 10/19/22 1452 -- less than 1 Patient Lines/Drains/Airways Status Active NG/Airways Name Placement date Placement time Site Days Nasal/Oral Tube 10 fr Right nostril 10/19/22 2116 Right nostril less than 1 General: Afebrile, In no acute distress, well appearing HEENT: moist mucus membranes, no nasal or ocular discharge, NG present in nares Neck: Soft, supple, no cervical adenopathy Cardiovascular: RRR, Normal S1 and S2, No murmurs, gallops, or rubs, pulses palpable, capillary refill< 3 seconds Respiratory: Good aeration B/L. No wheezes, rhonchi, or cough. No increased respiratory effort use of accessory muscles, supraclavicular, intercostal, or subcostal retractions. No stridor, grunting or head bobbing. Abdomen: Normal active bowel sounds present, soft, non-distended, non-tender, no guarding, stool palpable in abdomen. MSK: no deformities, no joint swelling Neuro: Alert, gross motor movements intact Skin: Warm and dry, No rashes Scheduled Meds: NaCl 0.9% 2 mL Intravenous Q8H melatonin 9 mg Oral at Bedtime Continuous Infusions: polyethylene glycol 500 mL/hr (10/19/22 2115) Dextrose 5 % NaCl 0.9% KCl 20 mEq/L 100 mL/hr at 10/20/22 0645 PRN Meds: NaCl 0.9%, NaCl 0.9%, NaCl, sterile water, NaCl, ondansetron, phenol Data Review: Results for orders placed or performed during the hospital encounter of 10/19/22 (from the past 24 hour(s)) Basic Metabolic Panel Result Value Ref Range Sodium 139 133 - 145 mmol/L Potassium 3.6 3.3 - 5.1 mmol/L Chloride 100 96 - 108 mmol/L Carbon Dioxide 25.4 22.0 - 29.0 mmol/L BUN 8 4 - 19 mg/dL Glucose 89 70 - 99 mg/dL Creatinine 0.71 0.50 - 1.00 mg/dL Calcium 10.2 7.6 - 11.0 mg/dL eGFR Result Value Ref Range eGFR see below NA Assessment: Principal Problem: Fecal impaction Active Problems: Chronic constipation Justin is a 16 y.o. female with hx of anxiety, depression, manic bipolar I disorder, and constipation presenting with fecal impaction. She is currently in no acute distress and continued to have dark brown stools. She requires continued hospital admission for close monitoring, NG bowel clean out and monitoring for electrolyte derangements. Plan: Problem Based Plan: Principal Problem: Fecal impaction Active Problems: Chronic constipation - place NG - Colyte Start at 100 and increase by 50 to a goal rate of 500 cc/hr - S/p Fleet enema x1, consider repeat enema today to faciliate clean out - MIVF - CLD - Zofran 4mg q8h PRN for nausea - Melatonin 9 mg HS - Chloraseptic spray PRN - Strict I&O's - routine vitals - daily BMP - KUB once clears - Child life consult Sasha Plummer DO [facility] Pediatric Resident, PGY-2 10/20/22 9:53 AM I personally performed clarke portions of the history and physical examination of this patient, and discussed their management with the media relations intern/resident. I reviewed the media relations intern/resident's note, and agree with the documented findings and plan of care, except as noted by or italics. I have discussed the differential diagnosis, assessment, and plan of care with the media relations intern/resident and medical decision making was done together. Zac Perez DO [facility] Pediatric Gastroenterology Office [phone] Pager [phone] 10/21/2022 7:34 AM documented in this encounter [facility] 10-20-2022 Progress note Formatting of t his note might be different from the original. Multidisciplinary Team Meeting Assessment/Plan of Care Reviewed Are there Case Management needs identified at this time? No DME/skilled needs at this time. [facility] will continue to monitor closely for potential home care (services/equipment) needs. Pt on IV fluids and receiving Golytely via NG tube. Representatives: Case Management: Mallory Chan RN, Melchor Farris booth operator Life: Anya Valoric CCLS Nursing: Teresa Hanley RN Clinical Coordinator Slat Twister: Da Montano [facility] 10-20-2022 Plan of care note Problem: Constipation, Risk of Goal: Bowel elimination without discomfort Outcome: Ongoing Problem: Fluid Volume Deficit Goal: Balanced intake and output Outcome: Ongoing Problem: Nausea/Vomiting Goal: Absence of nausea Outcome: Ongoing [facility] 10-19-2022 Plan of care note Problem: Constipation, Risk of Goal: Bowel elimination without discomfort Outcome: Ongoing Problem: Fluid Volume Deficit Goal: Balanced intake and output Outcome: Ongoing Problem: Nausea/Vomiting Goal: Absence of nausea Outcome: Ongoing Problem: Pain - Acute Goal: Reduced pain sensation Outcome: Ongoing Problem: Transition Readiness Goal: Knowledge of discharge instructions Outcome: Ongoing [facility] 10-19-2022 Note MEDICAL ADMISSION HI STORY AND PHYSICAL Date of Service: 10/19/2022 Attending Provider: Zac Perez DO Primary Care Provider: [facility], MD Rikki Chief Complaint: Fecal impaction and constipation Reason for Hospitalization: Failure of nonhospital therapy History of Present illness: Justin Olvera is a 16 y.o. female with hx of anxiety, depression, manic bipolar I disorder, and constipation presenting with fecal impaction. She was accompanied by her mother. History was obtained from mother and patient. Justin was recently seen in GI clinic on 10/14/22 at that time she reported that she has bowel movements 1-2x/weekly which are soft. However she states that she is frequently constipated where she has to strain and spend longer times in the bathroom. She reports when she is constipated those stools are hard and sometimes has blood. She also endorses intermittent abdominal pain and nausea. She states her last BM occurred 1 day prior. She denies any encopresis or incontinence. Bowel regimen: She states for 2 weeks she was taking 1 capful of miralax a few months ago. Otherwise dose not take anything. She noted sometimes the Miralax makes her have nausea. She was seen in the ED in July 2022 where she found to have a large stool burden and was given an enema. Mother notes she used to take Miralax daily when she was younger but when she got older she would refuse to take it. KUB on 10/14/22 revealed large stool burden with concern for rectal impaction with rectal distension 10 cm. She was advised to present to the hospital today for direct admission for bowel clean out. She had no complaints on my evaluation. Denying any abdominal pain, or nausea. Review of Systems: Positives in Bold General: Fever, fatigue, weight loss HEENT: Eye discharge, ear pain, congestion, sore throat Neck: Pain, Lymphadenopathy Cardiovascular: Cyanosis, palpitations Respiratory: Increased WOB, cough, wheezing Gastrointestinal: Nausea, vomiting, diarrhea, abdominal cramping, constipation, changes in appetite Genitourinary: Decrease in urination, dysuria MSK: Muscle pain or joint pain Neuro: Headache, dizziness Skin: Rashes or skin changes Medical/Surgical History: Past Medical History: Diagnosis Date ADHD (attention deficit hyperactivity disorder) Anxiety Bed wetting Depression Neuroleptic overdose 08/22/2019 Suicide attempt by other psychotropic drug overdose 08/23/2019 Past Surgical History: Procedure Laterality Date TONSILLECTOMY TYMPANOSTOMY TUBE PLACEMENT placed spring History: Noncontributory Development History: Milestones: All met as expected Diet History: Age appropriate / normal for age Drug/Food Allergies: No Known Allergies Immunizations: Immunization History Administered Date(s) Administered DTaP/Hep B/IPV (PEDIARIX) 04/14/2005 Dtap, Unspecified Formulation 2004, 09/13/2005, 09/20/2006, 03/23/2010 HPV 9-valent 02/23/2018 Hep B/HIB (COMVAX) 09/13/2005 Hepatitis B Ped/Adol 2004 Hib (Hboc) 04/14/2005, 02/07/2006 IPV 09/13/2005, 02/07/2006, 03/23/2010 MENINGOCOCCAL CONJUGATE ACWY VACCINE (MENACTRA) 02/23/2018, 11/16/2021 MMR 02/07/2006, 03/23/2010 Pneumococcal Conjugate 04/14/2005, 09/13/2005, 02/07/2006 TD (Adult) Unspecified Formulation 02/07/2006 Tdap 02/23/2018 Varicella 02/07/2006, 03/23/2010 Medications: Medications Prior to Admission Medication Sig Dispense Refill Last Dose polyethylene glycol (MIRALAX;GLYCOLAX) 17 GM/SCOOP powder Take 17 g by mouth daily Psych/Social History: Justin lives with mother, father, and 2 sisters and older sister's boyfriend Special Needs: None Preferred Language: Angolan Travel: No Pets: Yes: 3 cats Smoke Exposure: Patient Smokes. laboratory asst is not interested in smoking cessation. and Smoker(s) who smoke outside. laboratory asst is not interested in smoking cessation. Are there firearms in the home? 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 She reports having Cs and Bs for grades. She notes improved behavior with few calls home. Eating: Eats 3-4 smaller meals daily as part of balanced diet. Denies any body image concerns. Has access to food at home. Activities: They are not involved in sport, clubs. Drugs: She states she current smokes, tobacco cigarettes ( 2-4 cigarettes daily, trying to wean off), vapes (nicotine containing- 1 carton lasts about 1 month ) and smokes marijuana ( several times a week). Justin endorsed past use of Adderall, morphine, acid, Zanax, Codine, alcohol, cocaine, meth. She was part of a substance rehab program when she stopped taking all of the listed drugs. Last used meth April 2022. Alcohol use is typically once- twice a month socially with friends to the point of feeling a little dunk/bu (more content not included)... [facility] 10-19-2022 History and physical note MEDICAL ADMISSION HISTORY AND PHYSICAL Date of Service: 10/19/2022 Attending Provider: Zac Perez DO Primary Care Provider: [facility], MD Rikki Chief Complaint: Fecal impaction and constipation Reason for Hospitalization: Failure of nonhospital therapy History of Present illness: Justin Olvera is a 16 y.o. female with hx of anxiety, depression, manic bipolar I disorder, and constipation presenting with fecal impaction. She was accompanied by her mother. History was obtained from mother and patient. Justin was recently seen in GI clinic on 10/14/22 at that time she reported that she has bowel movements 1-2x/weekly which are soft. However she states that she is frequently constipated where she has to strain and spend longer times in the bathroom. She reports when she is constipated those stools are hard and sometimes has blood. She also endorses intermittent abdominal pain and nausea. She states her last BM occurred 1 day prior. She denies any encopresis or incontinence. Bowel regimen: She states for 2 weeks she was taking 1 capful of miralax a few months ago. Otherwise dose not take anything. She noted sometimes the Miralax makes her have nausea. She was seen in the ED in July 2022 where she found to have a large stool burden and was given an enema. Mother notes she used to take Miralax daily when she was younger but when she got older she would refuse to take it. KUB on 10/14/22 revealed large stool burden with concern for rectal impaction with rectal distension 10 cm. She was advised to present to the hospital today for direct admission for bowel clean out. She had no complaints on my evaluation. Denying any abdominal pain, or nausea. Review of Systems: Positives in Bold General: Fever, fatigue, weight loss HEENT: Eye discharge, ear pain, congestion, sore throat Neck: Pain, Lymphadenopathy Cardiovascular: Cyanosis, palpitations Respiratory: Increased WOB, cough, wheezing Gastrointestinal: Nausea, vomiting, diarrhea, abdominal cramping, constipation, changes in appetite Genitourinary: Decrease in urination, dysuria MSK: Muscle pain or joint pain Neuro: Headache, dizziness Skin: Rashes or skin changes Medical/Surgical History: Past Medical History: Diagnosis Date ADHD (attention deficit hyperactivity disorder) Anxiety Bed wetting Depression Neuroleptic overdose 08/22/2019 Suicide attempt by other psychotropic drug overdose 08/23/2019 Past Surgical History: Procedure Laterality Date TONSILLECTOMY TYMPANOSTOMY TUBE PLACEMENT placed spring History: Noncontributory Development History: Milestones: All met as expected Diet History: Age appropriate / normal for age Drug/Food Allergies: No Known Allergies Immunizations: Immunization History Administered Date(s) Administered DTaP/Hep B/IPV (PEDIARIX) 04/14/2005 Dtap, Unspecified Formulation 2004, 09/13/2005, 09/20/2006, 03/23/2010 HPV 9-valent 02/23/2018 Hep B/HIB (COMVAX) 09/13/2005 Hepatitis B Ped/Adol 2004 Hib (Hboc) 04/14/2005, 02/07/2006 IPV 09/13/2005, 02/07/2006, 03/23/2010 MENINGOCOCCAL CONJUGATE ACWY VACCINE (MENACTRA) 02/23/2018, 11/16/2021 MMR 02/07/2006, 03/23/2010 Pneumococcal Conjugate 04/14/2005, 09/13/2005, 02/07/2006 TD (Adult) Unspecified Formulation 02/07/2006 Tdap 02/23/2018 Varicella 02/07/2006, 03/23/2010 Medications: Medications Prior to Admission Medication Sig Dispense Refill Last Dose polyethylene glycol (MIRALAX;GLYCOLAX) 17 GM/SCOOP powder Take 17 g by mouth daily Psych/Social History: Justin lives with mother, father, and 2 sisters and older sister's boyfriend Special Needs: None Preferred Language: [place]olan Travel: No Pets: Yes: 3 cats Smoke Exposure: Patient Smokes. laboratory asst is not interested in smoking cessation. and Smoker(s) who smoke outside. laboratory asst is not interested in smoking cessation. Are there firearms in the home? 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 She reports having Cs and Bs for grades. She notes improved behavior with few calls home. Eating: Eats 3-4 smaller meals daily as part of balanced diet. Denies any body image concerns. Has access to food at home. Activities: They are not involved in sport, clubs. Drugs: She states she current smokes, tobacco cigarettes ( 2-4 cigarettes daily, trying to wean off), vapes (nicotine containing- 1 carton lasts about 1 month ) and smokes marijuana ( several times a week). Justin endorsed past use of Adderall, morphine, acid, Zanax, Codine, alcohol, cocaine, meth. She was part of a substance rehab program when she stopped taking all of the listed drugs. Last used meth April 2022. Alcohol use is typically once- twice a month socially with friends to the point of feeling a little dunk/buzzed. Safety: Feels safe at school and with their friends Sex: Is not sexually active Sexuality: attracted to females Gender: female Suicidality/Mental Health: Denies SI, and HI. Had had SI and self harm several years ago. Confidentiality discussed with teen: yes. Confidentiality discussed with Mother no. Family History Problem Relation Age of Onset Substance Use Mother Suicide Attempts Mother Anxiety Disorder Mother ADHD Mother Suicide Attempts Father Bipolar Disorder Father Anxiety Disorder Father Substance Use Father Bipolar Disorder Sister Suicide Attempts Sister Depression Maternal Uncle Eating Disorder Paternal Aunt Depression Paternal Aunt Depression Maternal Grandmother Mental Illness Paternal Grandfather Vital Signs: Vitals: 10/19/22 1205 BP: 107/57 Pulse: 99 Resp: 24 Temp: 36.6 C (97.9 F) Physical Exam: General: Afebrile, In no acute distress, well appearing HEENT: moist mucus membranes, no nasal or ocular discharge Neck: Soft, supple, no cervical adenopathy Cardiovascular: RRR, Normal S1 and S2, No murmurs, gallops, or rubs, pulses palpable, capillary refill< 3 seconds Respiratory: Good aeration B/L. No wheezes, rhonchi, or cough. No increased respiratory effort use of accessory muscles, supraclavicular, intercostal, or subcostal retractions. No stridor, grunting or head bobbing. Abdomen: Normal active bowel sounds present, soft, non-distended, non-tender, no guarding, stool palpable in abdomen. MSK: no deformities, no joint swelling Neuro: Alert, gross motor movements intact Skin: Warm and dry, No rashes Diagnostic Studies Reviewed: No studies performed or resulted in the last 24 hours Assessment: Justin is a 16 y.o. female with hx of anxiety, depression, manic bipolar I disorder, and constipation presenting with fecal impaction. She is currently in no acute distress. She requires hospital admission for close monitoring, NG bowel clean out and monitoring for electrolyte derangements. Plan: Problem Based Plan: Principal Problem: Fecal impaction Active Problems: Chronic constipation - place NG - Colyte Start at 100 and increase by 50 to a goal rate of 500 - Senna once now and at 2100 - MIVF - CLD - Zofran 4mg q8h PRN for nausea - Strict I&O's - routine vitals - daily BMP - TSH, TTG IgA in AM - KUB once clears - Child life consult Education: Discussion with parent/patient (diagnosis, plan) Discharge Planning: Anticipate discharge home in 24-48 hours, depending on clinical status Sasha Plummer DO [facility] Pediatric Resident, PGY-2 10/19/22 3:28 PM I personally performed clarke portions of the history and physical examination of this patient, and discussed their management with the media relations intern/resident. I reviewed the media relations intern/resident's note, and agree with the documented findings and plan of care, except as noted by or italics. I have discussed the differential diagnosis, assessment, and plan of care with the media relations intern/resident and medical decision making was done together. Zac Perez DO [facility] Pediatric Gastroenterology Office [phone] Pager [phone] 10/19/2022 4:49 PM [facility] 10-19-2022 History and physical note MEDICAL ADMISSION HISTORY AND PHYSICAL Date of Service: 10/19/2022 Attending Provider: Zac Perez DO Primary Care Provider: [facility], MD Rikki Chief Complaint: Fecal impaction and constipation Reason for Hospitalization: Failure of nonhospital therapy History of Present illness: Justin Olvera is a 16 y.o. female with hx of anxiety, depression, manic bipolar I disorder, and constipation presenting with fecal impaction. She was accompanied by her mother. History was obtained from mother and patient. Justin was recently seen in GI clinic on 10/14/22 at that time she reported that she has bowel movements 1-2x/weekly which are soft. However she states that she is frequently constipated where she has to strain and spend longer times in the bathroom. She reports when she is constipated those stools are hard and sometimes has blood. She also endorses intermittent abdominal pain and nausea. She states her last BM occurred 1 day prior. She denies any encopresis or incontinence. Bowel regimen: She states for 2 weeks she was taking 1 capful of miralax a few months ago. Otherwise dose not take anything. She noted sometimes the Miralax makes her have nausea. She was seen in the ED in July 2022 where she found to have a large stool burden and was given an enema. Mother notes she used to take Miralax daily when she was younger but when she got older she would refuse to take it. KUB on 10/14/22 revealed large stool burden with concern for rectal impaction with rectal distension 10 cm. She was advised to present to the hospital today for direct admission for bowel clean out. She had no complaints on my evaluation. Denying any abdominal pain, or nausea. Review of Systems: Positives in Bold General: Fever, fatigue, weight loss HEENT: Eye discharge, ear pain, congestion, sore throat Neck: Pain, Lymphadenopathy Cardiovascular: Cyanosis, palpitations Respiratory: Increased WOB, cough, wheezing Gastrointestinal: Nausea, vomiting, diarrhea, abdominal cramping, constipation, changes in appetite Genitourinary: Decrease in urination, dysuria MSK: Muscle pain or joint pain Neuro: Headache, dizziness Skin: Rashes or skin changes Medical/Surgical History: Past Medical History: Diagnosis Date ADHD (attention deficit hyperactivity disorder) Anxiety Bed wetting Depression Neuroleptic overdose 08/22/2019 Suicide attempt by other psychotropic drug overdose 08/23/2019 Past Surgical History: Procedure Laterality Date TONSILLECTOMY TYMPANOSTOMY TUBE PLACEMENT placed spring History: Noncontributory Development History: Milestones: All met as expected Diet History: Age appropriate / normal for age Drug/Food Allergies: No Known Allergies Immunizations: Immunization History Administered Date(s) Administered DTaP/Hep B/IPV (PEDIARIX) 04/14/2005 Dtap, Unspecified Formulation 2004, 09/13/2005, 09/20/2006, 03/23/2010 HPV 9-valent 02/23/2018 Hep B/HIB (COMVAX) 09/13/2005 Hepatitis B Ped/Adol 2004 Hib (Hboc) 04/14/2005, 02/07/2006 IPV 09/13/2005, 02/07/2006, 03/23/2010 MENINGOCOCCAL CONJUGATE ACWY VACCINE (MENACTRA) 02/23/2018, 11/16/2021 MMR 02/07/2006, 03/23/2010 Pneumococcal Conjugate 04/14/2005, 09/13/2005, 02/07/2006 TD (Adult) Unspecified Formulation 02/07/2006 Tdap 02/23/2018 Varicella 02/07/2006, 03/23/2010 Medications: Medications Prior to Admission Medication Sig Dispense Refill Last Dose polyethylene glycol (MIRALAX;GLYCOLAX) 17 GM/SCOOP powder Take 17 g by mouth daily Psych/Social History: Justin lives with mother, father, and 2 sisters and older sister's boyfriend Special Needs: None Preferred Language: Angolan Travel: No Pets: Yes: 3 cats Smoke Exposure: Patient Smokes. laboratory asst is not interested in smoking cessation. and Smoker(s) who smoke outside. laboratory asst is not interested in smoking cessation. Are there firearms in the home? 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 She reports having Cs and Bs for grades. She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 RN) Scheduled Medication Order 10/19/2022 10/20/2022 10/21/2022 melatonin tablet 9 mg 9 mg (0.151 mg/kg/DAY), Oral, BEDTIME, 90 doses, First dose on Tue10/19/22 at 2100, Last dose on Tue01/16/23 at 2100 2009 (Given - Provider: Nathaniel Maier RN) 2052 (Not Given - Provider: Sneha Severino RN - Reason: Patient/family refused) NaCl 0.9% PosiFlush 2 mL 2 mL EVERY 8 HOURS (0.103 mL/kg/DAY), Intravenous, at 0-999 mL/hr, First dose on Tue10/19/22 at 1030, For 90 days 171 (Not Given - Provider: Nathaniel Maier RN - Reason: Running IV fluids)1712 (Not Given - Provider: Nathaniel Maier RN - Reason: Patient not available) 0000 (Not Given - Provider: Lyla Robbins RN - Reason: Running IV fluids)0809 (Not Given - Provider: Rebeka Dawson RN - Reason: Running IV fluids)1631 (Not Given - Provider: Rebeka Dawson RN - Reason: Running IV fluids) 0024 (Not Given - Provider: Sneha Severino RN - Reason: Running IV fluids)0823 (Not Given - Provider: Lisa Tenorio RN - Reason: Running IV fluids)1700 (Due) Oxymetazoline 0.025% Tetracaine 0.25% 1:1 nasal spray 1 [place] (COMPLETED) 1 [place], Each Nare, ONCE, 1 dose, On Tue10/19/22 at 1330, Give 10 minutes prior to NG tube insertion. Check vital signs prior to administration and immediately following NG insertion. Report elevation of blood pressure or untoward patient responses to physician/DARNELL. Refer to [employer] for specific drug information. 1418 (Given - Provider: Nathaniel Maier RN) Oxymetazoline 0.025% Tetracaine 0.25% 1:1 nasal spray 1 [place] (COMPLETED) 1 [place], Each Nare, ONCE, 1 dose, On Tue10/19/22 at 2130, Give 10 minutes prior to NG tube insertion. Check vital signs prior to administration and immediately following NG insertion. Report elevation of blood pressure or untoward patient responses to physician/DARNELL. Refer to [employer] for specific drug information. 2115 (Given - Provider: Nahtaniel Maier RN) phosphate (FLEET) 7-19 GM/118ML enema 118 mL (COMPLETED) 118 mL (1.98 ml/kg/DOSE = 1 Enema), Rectal, ONCE, 1 dose, On Tue10/19/22 at 1330 1441 (Given - Provider: Nathaniel Maier RN) phosphate (FLEET) 7-19 GM/118ML enema 118 mL (COMPLETED) 118 mL (1.98 ml/kg/DOSE = 1 Enema), Rectal, ONCE, 1 dose, On Tue10/20/22 at 1430 1435 (Given - Provider: Rebeka Dawson RN) Continuous Medication Order 10/19/2022 10/20/2022 10/21/2022 Dextrose 5 % NaCl 0.9% KCl 20 mEq/L IV CONTINUOUS, Intravenous, at 100 mL/hr, Starting on Tue10/19/22 at 1330, For 90 days 1453 (New Bag - Provider: Nathaniel Maier RN)1500 (Dose/Rate Verification - Provider: Nathaniel Maier RN)1503 (Paused - Provider: Nathaniel Maier RN)1507 (Paused - Provider: Nathaniel Maier RN)1516 (Restarted - Provider: Nathaniel Maier RN)1600 (Dose/Rate Verification - Provider: Nathaniel Maier RN)1645 (Paused - Provider: Nathaniel Maier RN)1647 (Restarted - Provider: Nathaniel Maier RN)1700 (Dose/Rate Verification - Provider: Nathaniel Maier RN)1701 (Paused - Provider: Nathaniel Maier RN)1717 (Restarted - Provider: Nathaniel Maier RN)1800 (Dose/Rate Verification - Provider: Nathaniel Maier RN)1900 (Dose/Rate Verification - Provider: Nathaniel Maier RN)2000 (Dose/Rate Verification - Provider: Nathaniel Maier RN)2100 (Dose/Rate Verification - Provider: Nathaniel Maier RN)2101 (Dose/Rate Verification - Provider: Lyla Robbins RN)2201 (Dose/Rate Verification - Provider: Lyla Robbins RN)2301 (Dose/Rate Verification - Provider: Lyla Robbins RN) 0001 (Dose/Rate Verification - Provider: Lyla Robbins RN)0022 (Stopped - Provider: Lyla Robbins RN)0022 (New Bag - Provider: Lyla Robbins RN)0101 (Dose/Rate Verification - Provider: Lyla Robbins RN)0158 (Paused - Provider: Lyla Robbins RN)0218 (Paused - Provider: Lyla Robbins RN)0218 (Restarted - Provider: Lyla Robbins RN)0301 (Dose/Rate Verification - Provider: Lyla Robbins RN)0401 (Dose/Rate Verification - Provider: Lyla Robbins RN)0501 (Dose/Rate Verification - Provider: Lyla Robbins RN)0601 (Dose/Rate Verification - Provider: Lyla Robbins RN)0622 (Paused - Provider: Lyla Robbins RN)0629 (Restarted - Provider: Lyla Robbins RN)0645 (Dose/Rate Verification - Provider: Lyla Robbins RN)0651 (Paused - Provider: Rebeka Dawson RN)0654 (Restarted - Provider: Rebeka Dawson RN)0654 (Paused - Provider: Rebeka Dawson, TANISHA)0701 (Restarted - Provider: Rebeka Dawson RN)0701 (Paused - Provider: Rebeka Dawson RN)0703 (Restarted - Provider: Rebeka Dawson RN)0704 (Paused - Provider: Rebeka Dawson RN)0706 (Restarted - Provider: Rebeka Dawson RN)0817 (Dose/Rate Verification - Provider: Rebeka Dawson RN)0824 (Dose/Rate Verification - Provider: Rebeka Dawson RN)1112 (Dose/Rate Verification - Provider: Rebeka Dawson RN)1142 (Dose/Rate Verification - Provider: Rebeka Dawson RN)1213 (Dose/Rate Verification - Provider: Rebeka Dawson RN)1235 (Paused - Provider: Rebeka Dawson RN)1245 (Restarted - Provider: Rebeka Dawsno RN)1245 (Paused - Provider: Rebeka Dawson RN)1247 (Paused - Provider: Rebeka Dawson RN)1248 (Restarted - Provider: Rebeka Dawson RN)1415 (Dose/Rate Verification - Provider: Rebeka Dawson RN)1432 (Paused - Provider: Rebeka Dawson RN)1436 (Paused - Provider: Rebeka Dawson RN)1436 (Restarted - Provider: Rebeka Dawson RN)1449 (Dose/Rate Verification - Provider: Rebeka Dawson RN)1516 (Paused - Provider: Rebeka Dawson RN)1525 (Paused - Provider: Rebeka Dawson RN)1525 (Restarted - Provider: Rebeka Dawson RN)1629 (Dose/Rate Verification - Provider: Rebeka Dawson RN)1636 (Dose/Rate Verification - Provider: Rebeka Dawson RN)1658 (Paused - Provider: Rebeka Dawson RN)1701 (Paused - Provider: Rebeka Dawson RN)1701 (Restarted - Provider: Rebeka Dawson RN)1702 (Paused - Provider: Rebeka Dawson RN)1702 (Paused - Provider: Rebeka Dawson RN)1705 (Restarted - Provider: Rebeka Dawson RN)1706 (Paused - Provider: Rebeka Dawson RN)1706 (Paused - Provider: Rebeka Dawson RN)1708 (Restarted - Provider: Rebeka Dawson RN)1708 (Paused - Provider: Rebeka Dawson RN)1708 (Paused - Provider: Rebeka Dawson RN)1716 (Restarted - Provider: Rebeka Dawson RN)1726 (Dose/Rate Verification - Provider: Rebeka Dawson RN)1903 (Dose/Rate Verification - Provider: Rebeka Dawson RN) 0312 (New Bag - Provider: Maddie Macario RN)0800 (Dose/Rate Verification - Provider: Lisa Tenorio RN)0801 (Dose/Rate Verification - Provider: Lisa Tenorio, RN)0900 (Dose/Rate Verification - Provider: Lisa Tenorio RN)0901 (Dose/Rate Verification - Provider: Lisa Tenorio RN)1001 (Dose/Rate Verification - Provider: Lisa Tenorio, RN)1100 (Dose/Rate Verification - Provider: Lisa Tenorio, RN)1217 (New Bag - Provider: Felipa Waite RN)1645 (Stopped - Provider: Lisa Tenorio RN) polyethylene glycol (COLYTE) oral solution 500 mL/hr, PO/Tube, CONTINUOUS, Starting on Tue10/19/22 at 1030, Until Tue10/21/22 at 2007, Administer until stools are clear. Notify physician for increase dose if tolerates for 4 hours. Goal rate of 500mL/hr. Start at 100ml/hr of goal rate and increase by 100ml every hour as tolerated until at goal. 1546 (New Bag - Provider: Nathaniel Maier RN - Comment: Okay to go at this rate per Sasha Plummer)1645 (Rate/Dose Change - Provider: Nathaniel Maier RN)1747 (Rate/Dose Change - Provider: Nathaniel Maier RN)1850 (Rate/Dose Change - Provider: Nathaniel Maier RN)1950 (Rate/Dose Change - Provider: Nathaniel Maier RN)2019 (Stopped - Provider: Nathaniel Maier RN)211 (Restarted from Bag - Provider: Nathaniel Maier RN) 214 (New Bag - Provider: Sneha Severino RN) 164 (Stopped - Provider: Lisa Tenorio RN) PRN Medication Order 10/19/2022 10/20/2022 10/21/2022 acetaminophen (TYLENOL) 325 MG tablet 650 mg 650 mg (10.9 mg/kg/DOSE), Oral, EVERY 6 HOURS PRN, Starting on Tue10/21/22 at 1555, Until Margaret 10/21/22 at 2006, Mild Pain = Pain Score 1-3 NaCl 0.9 % 10 mL 10 mL PRN (0.172 ml/kg/DOSE), Intravenous, at 0-999 mL/hr, Line Care, For mixture of medications, Starting on Tue10/19/22 at 0951, For 90 days, For mixture of medications NaCl 0.9 % IV Flush bag 30 mL 30 mL PRN (0.516 ml/kg/DOSE), Intravenous, at 0-999 mL/hr, Flush IV line after medication IVPB bag if given., Starting on Tue10/19/22 at 0951, For 90 days, Flush IV line after medication IVPB bag if given. NaCl 0.9% PosiFlush 2 mL 2 mL PRN (0.0344 ml/kg/DOSE), Intravenous, at 0-999 mL/hr, Line Care, Starting on Tue10/19/22 at 0951, For 90 days NaCl 0.9% PosiFlush 5 mL 5 mL PRN (0.0861 ml/kg/DOSE), Intravenous, at 0-999 mL/hr, Line Care, Starting on Tue10/19/22 at 0951, For 90 days, Central Line. ondansetron (ZOFRAN-ODT) disintegrating tablet 4 mg 4 mg (0.0688 mg/kg/DOSE), Oral, EVERY 8 HOURS PRN, Starting on Tue10/19/22 at 0954, Until Margaret 10/21/22 at 2007, First Line Nausea 2019 (Given - Provider: Nathaniel Maier RN) 1848 (Given - Provider: Rebeka Dawson RN) 0356 (Given - Provider: Sneha Severino RN) phenol (CHLORASEPTIC) 1.4 % oral spray 1 [place] 1 [place], Oral, EVERY 2 HOURS PRN, Starting on Tue10/19/22 at 1459, Until Margaret 10/21/22 at 2007, Mild Pain = Pain Score 1-3, [place] should be allowed to remain in mouth for approximately 15 seconds, then expectorate. 1543 (Given - Provider: Nathaniel Maier RN)1906 (Given - Provider: Nathaniel Maier RN) 0755 (Given - Provider: Lisa Tenorio RN)1210 (Given - Provider: Felipa Waite, TANISHA) sterile water injection 10 mL 10 mL (0.172 ml/kg/DOSE), Intravenous, PRN, Starting on Tue10/19/22 at 0951, Until Margaret 10/21/22 at 2007, For mixture of medications, For mixture of medications No Frequency Medication Order 10/19/2022 10/20/2022 10/21/2022 surgical lubricant (SURGILUBE) jelly (COMPLETED) 1 dose, Starting on Tue10/19/22 at 1346, Until Tue10/19/22 at 1453, NATHANIEL MAIER: cabinet override, NATHANIEL MAIER: cabinet override 1453 (Given - Provider: Nathaniel Maier RN) surgical lubricant (SURGILUBE) jelly (COMPLETED) 1 dose, Starting on Tue10/19/22 at 2100, Until Tue10/19/22 at 2106, NATHANIEL MAIER: cabinet override, NATHANIEL MAIER: cabinet override 210 (Given - Provider: Nathaniel Maier RN) Care Teams (unrecognized sec tion and content) Handicapped Teacher Relationship Specialty Start Date End Date No Primary Care, [place] [address] PCP - General Pediatrics 08/02/22 Handicapped Teacher Relationship Specialty Start Date End Date No Primary Care, MD Rikki EVITA [place] [address] PCP - General Pediatrics 08/02/22 Handicapped Teacher Relationship Specialty Start Date End Date No Primary Care, MD Rikki [place] [address] PCP - General Pediatrics 10/19/22 FOR RECORDS PERTAINING TO PATIENTS WHO ARE OR HAVE BEEN ENROLLED IN A CHEMICAL DEPENDENCY/SUBSTANCEABUSE PROGRAM, SOME INFORMATION MAY BE OMITTED. This clinical summary was aggregated from multiple sources. Caution should be exercised in using it in the provision of clinical care. This summary normalizes information from multiple sources, and as a consequence, information in this document may materially change the coding, format and clinical context of patient data. In addition, data may be omitted in some cases. CLINICAL DECISIONS SHOULD BE BASED ON THE PRIMARY CLINICAL RECORDS. [facility]. provides no warranty or guarantee of the accuracy or completeness of information in this document.
--- NOTE | 2024-06-09 12:23 | ED.LOWEXI1 ---
HPI HPI - Extremity Injury (Lower) General Chief Complaint: Extremity Injury, Lower Stated Complaint: LOWER LEFT EXTREMITY PAIN Time Seen by Provider: 06/09/24 12:15 Source: patient Mode of arrival: Wheelchair History of Present Illness HPI Narrative: 18-year-old female presents to the emergency department for left knee pain. She states she was wrestling around 4 days ago and twisted it. She had an outpatient x-ray yesterday which appears to show possible avulsion fracture. She is already on crutches and states it hurts more to walk on it. Related Data Allergies Allergy/AdvReac Type Severity Reaction Status Date / Time No Known Drug Allergies Allergy Verified 06/09/24 12:12 Opioid HPI Opioid Management Most Recent Pain and Opioid Data: No Data to Display Review of Systems ROS Narrative A ten point review of systems is negative except as noted above. Exam Narrative Exam Narrative: Nurses note and vital signs reviewed and patient is not hypoxic. General: The patient appears well and in no apparent distress. Patient is resting comfortably on cart. Skin: Warm, dry, no pallor noted. There is no rash noted. Head: Normocephalic, atraumatic Eye: Normal conjunctiva, no drainage Ears, Nose, Mouth, and Throat: oral mucosa is moist. Nares patent. Cardiovascular: Regular Rate and Rhythm Respiratory: Patient is in no distress, no accessory muscle use, lungs are clear to auscultation, no wheezing, rales or rhonchi Back: non-tender GI: Soft and nontender Musculoskeletal: Left knee has some swelling particular at the medial aspect. It has full range of motion. Neurological: Awake and alert Psychiatric: Cooperative Constitutional Vital Signs, click to edit/add: Last Vital Signs Temp 97.8 F 06/09/24 12:05 Pulse 87 06/09/24 12:05 Resp 16 06/09/24 12:05 BP 127/76 06/09/24 12:05 Pulse Ox 98 06/09/24 12:05 O2 Del Method Room Air 06/09/24 12:05 Course Vital Signs Vital signs: Vital Signs Temperature 97.8 F 06/09/24 12:05 Pulse Rate 87 06/09/24 12:05 Respiratory Rate 16 06/09/24 12:05 Blood Pressure 127/76 06/09/24 12:05 Pulse Oximetry 98 06/09/24 12:05 Oxygen Delivery Method Room Air 06/09/24 12:05 Temperature 97.8 F 06/09/24 12:05 Pulse Rate 87 06/09/24 12:05 Respiratory Rate 16 06/09/24 12:05 Blood Pressure 127/76 06/09/24 12:05 Pulse Oximetry 98 06/09/24 12:05 Oxygen Delivery Method Room Air 06/09/24 12:05 MDM - Extremity Injury (Lower) MDM Narrative Medical decision making narrative: X-ray from yesterday was reviewed. Sanjay wrap applied, application checked by me and found to be appropriate, she is neurovascularly intact. Orthopedic appointment was made for her from noon on Tuesday, June 11, 2 days from now. Findings were discussed with the patient. Differential Diagnosis Differential diagnosis: Likely other (Knee sprain, knee fracture) Discharge Plan Discharge Chief Complaint: Extremity Injury, Lower Clinical Impression: Acute pain of left knee Patient Disposition: Home, Self-Care Time of Disposition Decision: 12:22 Condition: Good Mode of Transportation: Private Vehicle Print Language: Serbian Instructions: Knee Pain (ED) Referrals: Sandoval Carias NP [Primary Care Provider] - 1 week Navdeep Pedersen MD [Physician] - 06/11/24 12:00 pm
== END 2024-06-09 12:48 | disposition home or self-care (01) ==
PROVIDERS: Emergency Provider Emergency Medicine; PCP Nurse Practitioner Primary Care
DX: M25.562 Pain in left knee (principal)
CPT/HCPCS: 99283

== ENCOUNTER 2024-06-21 13:31 | Outpatient (OUT) | payer OTHER, SELFPAY ==
--- NOTE | 2024-06-21 13:33 | MR_ITS ---
[address] [address] Patient Name: JUSTIN OLVERA MRN: [id number] date: 2005 Sex: F Assigned Patient Location: MRI Current Patient Location: MRI Accession/Order Number: [id number] Exam Date: 06/21/2024 14:00 Report Date: 06/24/2024 14:01 At the request of: NIXON DOMINGO Procedure: MR knee LT wo con EXAM: MR knee LT wo con HISTORY: Effusion Left Knee, Sprain Of Medial Collateral Ligament wrestling injury. Anterior knee pain worse with extension. COMPARISON: X-rays 06/08/2024. TECHNIQUE: Multiplanar multisequence MRI of the left knee was performed without contrast. This included axial STIR, coronal and sagittal PD fat-sat, sagittal T2 and sagittal T1 imaging. FINDINGS: MENISCI: The menisci appear intact. No parameniscal cyst is seen. LIGAMENTS: There is an intermediate to high-grade partial-thickness tear of the proximal MCL with adjacent soft tissue and mild bone marrow edema. Cruciate and lateral collateral ligaments are intact. TENDONS: The iliotibial band, biceps femoris, quadriceps, patellar and popliteus tendons are intact. TIBIOFEMORAL JOINT: Articular cartilage appears intact. No osteochondral lesion is seen. PATELLOFEMORAL JOINT: Articular cartilage is intact. The patella is normally located in the trochlear groove. There is a chronic osteochondral impaction of the medial femoral condyle, which could be developmental. The tibial tubercle to trochlear groove interval appears within normal limits. SOFT TISSUES: Small to moderate knee joint effusion. No popliteal cyst. The visualized musculature appears of normal signal intensity. BONES: Mild to moderate bone marrow edema like signal at the periphery of the medial femoral condyle and lateral femoral condyle. No fractures seen. MR/MR knee LT wo con IMPRESSION: 1. Acute/subacute intermediate to high-grade partial tear of the proximal MCL fibers. 2. Bone marrow contusions involving the medial and lateral femoral condyles. No fracture. 3. Cruciate and lateral collateral ligaments are intact. No meniscal tear. 4. Knee joint effusion. 5. 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 Electronically authenticated by: OMID DOUGLAS Date: 06/24/2024 14:01
== END 2024-06-21 13:32 | disposition home or self-care (01) ==
LOC: MRI 13:31
PROVIDERS: PCP Nurse Practitioner Primary Care; Visit Provider Physician Assistant
DX: M25.462 Effusion, left knee (principal); S83.412A Sprain of medial collateral ligament of left knee, initial encounter
CPT/HCPCS: 73721